=== PATIENT | female | born 1990 | race Two or more races ===

== ENCOUNTER 2017-04-05 15:22 | Emergency (ER) | payer OTHER ==
[~2017-04-05] VITALS: Ht 157.5 cm; Wt 82.2 kg
[2017-04-05 15:28] VITALS: BP 123/81
[2017-04-05] MEDS ORDERED: LIDOCAINE 1%, 20ML ONE (16:06)
[2017-04-05] MEDS ORDERED: BACITRACIN ZINC OINT 500U/GM, 0.9 GM ONE (16:26)
[2017-04-05] MEDS ORDERED: DIPH,PERTUSS(ACELL),TET VAC/PF 0.5 ML IM-VACC ONE ×2 (16:26→16:30)
[2017-04-05] MEDS ORDERED: LIDOCAINE 1%, 20ML SQ ONE (16:30)
== END 2017-04-05 16:56 | disposition home or self-care (01) ==
LOC: ED 16:30
DX: S61.211A Laceration without foreign body of left index finger without damage to nail, initial encounter (principal); W22.8XXA Striking against or struck by other objects, initial encounter; Y93.89 Activity, other specified; Y92.099 Unspecified place in other non-institutional residence as the place of occurrence of the external cause; Y99.8 Other external cause status; F12.10 Cannabis abuse, uncomplicated
CPT/HCPCS: 12001; 90471; 90715

== ENCOUNTER → 2021-03-05 | Outpatient (CLI) | payer OTHER | END | disposition home or self-care (01) | LOC: RAD 09:06 | PROVIDERS: ATTEND Nurse Practitioner Women's Health | DX: N83.02 Follicular cyst of left ovary (principal); N83.01 Follicular cyst of right ovary; N85.4 Malposition of uterus; N92.6 Irregular menstruation, unspecified | CPT/HCPCS: 76830 ==

== ENCOUNTER 2021-04-04 09:47 | Emergency (ER) | payer OTHER ==
[~2021-04-04] VITALS: Ht 157.5 cm; Wt 77.4 kg
[2021-04-04] MEDS ORDERED: ACETAMINOPHEN 500 MG TABLET ONE (10:06)
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
[2021-04-04] MEDS ORDERED: ACETAMINOPHEN 500 MG TABLET PO ONE (10:30)
--- NOTE | 2021-04-04 11:10 | NUR ---
ALL RESULTS BACK, PT FOR RECHECK.
[2021-04-04 12:12] VITALS: BP 112/61
== END 2021-04-04 12:15 | disposition home or self-care (01) ==
LOC: ED 09:59
DX: S16.1XXA Strain of muscle, fascia and tendon at neck level, initial encounter (principal); S00.83XA Contusion of other part of head, initial encounter; S00.12XA Contusion of left eyelid and periocular area, initial encounter; S00.11XA Contusion of right eyelid and periocular area, initial encounter; S06.9X1A Unspecified intracranial injury with loss of consciousness of 30 minutes or less, initial encounter; Y04.8XXA Assault by other bodily force, initial encounter; Y93.89 Activity, other specified; Y92.89 Other specified places as the place of occurrence of the external cause; Y99.8 Other external cause status
CPT/HCPCS: 70450; 70486; 72125; 99285